=== PATIENT | female | born 1995 | race Caucasian/White ===

== ENCOUNTER 2023-12-27 08:46 | Emergency (ER) | payer BC, SELFPAY ==
[2023-12-27 08:47] VITALS: BP 147/112
--- NOTE | 2023-12-27 09:00 | ED.GENMED ---
History of Present Illness
General
Chief Complaint: Musculo-Skeletal Complaint
Source: patient
Exam Limitations: none
Time Seen by Provider: 12/27/23 08:57
Nursing documentation reviewed up to this point in time: agreed with
History of Present Illness
History of Present Illness:
Patient is a 28-year-old female who presents to the ER for evaluation of right finger injury. Patient was walking her dog and her dog pulled on her leash injuring her right index finger. She does complain of pain and swelling to the index finger.
She is right-hand dominant. Denies any lacerations.
Past History
Past History
ED Past Medical History: Psychiatric (ADHD)
ED Past Surgical History: None
Review of Systems
Review of Systems
Allergies reviewed?: Yes
All Other Systems: ROS reviewed and negative except as documented in HPI and ROS
Constitutional: Reports no symptoms
Musculoskeletal: Reports other (right index finger swollen at prox phalynx and pip joint no lacerations/abrasions + pain with flexion /extension. nml sensation )
Skin: Reports no symptoms
Psychiatric: Reports no symptoms
Phy Exam
General Physical Exam
General Presentation: no apparent distress
General age: appears stated age
General Skin: warm and dry
General Habitus: normal
General Mental: alert
General Hydration: appears well hydrated
Neurological Exam
Neurological Exam: alert and oriented x3
Musculoskeletal Exam
Musculoskeletal Exam: other (rue with strong pulses positive swelling tenderness to proximal phalanx of right index. No abrasions or lacerations pain with flexion extension decreased due to pain and swelling normal sensation and nml cap refill )
Skin Exam
Skin Exam: normal color and warm/dry
Psychiatric Exam
Psychiatric Exam: normal mood/affect
Course
Orders/Labs/Results
Orders:
Orders
12/27/23 09:02
Ibuprofen [Motrin] 600 mg PO NOW STA
Finger(s)/Thumb 2 View Rt [CR Finger(s)/thumb Min 2 Vw Rt] Urgent
Comment:
Reason For Exam: trauma
Indicate Which Finger:: Index Finger
12/27/23 10:51
Aluminium Finger Splint Right ONCE
12/27/23 10:57
Vital Signs- Treatment ONCE
Frequency: Once
Vital Signs
Initial and Last Documented VS:
Initial Vital Signs
Temp Pulse Resp BP Pulse Ox
98.5 F 112 18 147/112 100
12/27/23 08:47 12/27/23 08:47 12/27/23 08:47 12/27/23 08:47 12/27/23 08:47
Last Documented Vital Signs
Temp Pulse Resp BP Pulse Ox
98.5 F 78 18 121/70 98
12/27/23 08:47 12/27/23 11:30 12/27/23 11:30 12/27/23 11:30 12/27/23 11:30
MDM/Problems Addressed
Differential Diagnosis Includes:
Not limited to sprain strain fracture dislocation
MDM/Problems Addressed:
Patient with proximal phalanx fracture of right index finger will place in a long finger splint and DC with outpatient hand follow-up
*Radiology
Radiology exam reviewed: radiology read reviewed
*Pulse Oximetry
Patient hypoxic: no
*Critical Care Note
Total Time (30-74mins, 75-104mins- exclusive of procedures): Not Applicable
ED Attending Note
-
Portions of this chart may have been created with voice recognition software.� Occasional wrong word or��sound alike� substitutions may have occurred due to the inherent limitations of voice recognition software.
Discharge Plan
Departure
Patient Disposition: Home (Routine Discharge)
Date of Disposition: 12/27/23
Time of Disposition: 10:54
Patient with high blood pressure during this ER visit?: Yes
Condition: Fair
Covid-19: Not Applicable
Discharge Problem:
Finger fracture, right
Instructions: Finger Fracture ED
Prescriptions:
No Action
Larissia-[id number] Tablet
1 tab PO DAILY
lisdexamfetamine [Vyvanse] 20 MG capsule
20 mg PO DAILY
acetaminophen 325 MG tablet
650 mg PO Q6HPRN PRN (Reason: mild pain/ fever>100.5F) 0RF
cephalexin 500 MG capsule
500 mg PO QID Qty: 32 0RF
ibuprofen 600 MG tablet
600 mg PO Q8HPRN PRN (Reason: severe pain) Qty: 10 0RF
Referrals:
Jose Harrell MD [Active] -
Gaudencio Lambert MD [Active] -
Aimee Haque NP [Family Provider] -
Activity Restrictions/Additional Instructions:
As discussed you have a fracture to your right finger. Wear splint until seen and evaluated by orthopedic hand specialist. Please call the office Friday morning for an appointment as soon as possible for reevaluation. You may ice over the
affected area for the next 24 to 48 hours 20 minutes at a time several times a day. Ibuprofen every 8 hours for pain and swelling. Return if any worsening of symptoms.
Interventions
Interventions:
*Risk Screen - Suicide Last Done: 12/27/23 08:47
*General Assessment Last Done: 12/27/23 08:47
*Neglect/Abuse Screening Last Done: 12/27/23 08:47
ED- Fall Risk Assessment Last Done: 12/27/23 11:29
*ED COVID-19 Vaccine History Last Done: 12/27/23 11:29
*Nursing Disposition Last Done: 12/27/23 11:30
ED-Musculoskeletal Assessment Last Done: 12/27/23 11:29
Discharge Date and Time
Discharge Date/Time: 12/27/23 11:31
Print Language: NEPALESE
[2023-12-27] MEDS: MOTRIN 600 MG PO (09:36)
[2023-12-27 11:08] VITALS: BP 133/105
[2023-12-27 11:30] VITALS: BP 121/70
== END 2023-12-27 11:31 | disposition home or self-care (01) ==
LOC: EMR 08:46
PROVIDERS: EMERGENCY PHYSICIAN Emergency Medicine; FAMILY PHYSICIAN Internal Medicine
DX: S62.610A Displaced fracture of proximal phalanx of right index finger, initial encounter for closed fracture (principal); X50.0XXA Overexertion from strenuous movement or load, initial encounter; R03.0 Elevated blood-pressure reading, without diagnosis of hypertension
CPT/HCPCS: 99283; 29130; 73140